=== PATIENT | male | born 1990 | race Caucasian/White ===

== ENCOUNTER 2022-12-23 23:11 | Outpatient (REF) | payer MEDICAID, SELFPAY ==
[2022-12-24 00:32] LABS: Hematocrit 41.2 % (42.0-54.0); Hemoglobin 13.2 g/dL (14.0-18.0); Mean Corpuscular Volume 96.7 fL (80.0-94.0); Mean Platelet Volume 10.8 fL (9.5-13.5); Platelet Count 372 10^3/uL (150-450); Red Blood Count 4.26 10^6/uL (4.70-6.10); Red Cell Distribution Width 12.3 % (11.0-15.0); White Blood Count 12.6 10^3/uL (4.0-11.0)
[2022-12-24 01:27] LABS: Lymphocytes Absolute Manual 2.01 10^3/uL (1.20-3.80); Monocytes Absolute Manual 1.51 10^3/uL (0.30-0.80); Segmented Neut Absolute Manual 8.56 10^3/uL (1.4-6.5)
== END 2022-12-23 23:12 | disposition home or self-care (01) ==
LOC: LAB 23:11
DX: R50.9 Fever, unspecified (principal)
CPT/HCPCS: 36415; 85027